=== PATIENT | female | born 1970 | race Caucasian/White ===

== ENCOUNTER → 2018-08-30 | Outpatient (CLI) | payer BC ==
--- NOTE | 2018-09-03 10:35 | Diagnostic Imaging Report ---
EXAMINATION: MRI of the left brachial plexus without contrast CLINICAL HISTORY: Left upper extremity pain, left axillary region swelling, thoracic outlet syndrome. COMPARISON: None available TECHNIQUE: Sagittal and coronal T1, coronal T2 STIR, coronal water IDEAL, axial T1 and T2 FSE, axial T2 acute, postcontrast axial and coronal T1 fat sat. Additional coronal T2 fat sat of the bilateral cervicothoracic regions were performed. Image quality: Motion artifact from pulsation limits evaluation of some of the sequences. FINDINGS: The upper, middle and lower trunks as well as the lateral, posterior and medial cords are normal in size and signal intensity. There is no evidence of intrinsic lesion or abnormal enhancement. No extrinsic compression is seen either. The spinal cord is of normal size and contains no areas of abnormal signal intensity. No significant degenerative changes. IMPRESSION: No evidence of intrinsic abnormality or extrinsic compression of the left brachial plexus. Signed by: Dr. Rhea Rothman M.D. on 09/03/2018 10:32 AM
== END ==
LOC: MRI 10:23
PROVIDERS: ATTEND Internal Medicine Interventional Cardiology
DX: G54.0 Brachial plexus disorders (principal); M79.602 Pain in left arm
CPT/HCPCS: 71550

== ENCOUNTER → 2018-10-08 | Outpatient (CLI) | payer BC ==
[~2018-10-08] MED LIST: IOPAMIDOL 370 MG/ML 200 ML INFUS..BTL INJ ONE; SODIUM CHLORIDE 0.9% 50ML 50 ML ONE
--- NOTE | 2018-10-08 14:10 | Diagnostic Imaging Report ---
Exam: Left humerusCT with contrast. History: Lung/mass in the left upper arm outer part of the mid humerus and arm pit.. History of basal cell skin cancer. Bone pain Comparison:MRI 08/30/2018 Technique: Utilizing a 64-slice multidetector CT, axial imaging was performed through the left humerus with IV contrast. 100 cc Isovue 370 contrast material was administered Multiplanar reformation was performed. RADIATION DOSE: Total DLP: 526.54 mGy*cm Estimated effective dose: (DLP x 0.015 x size factor) mSv All CT scans are performed using radiation dose reduction techniques. Technical factors are evaluated and adjusted to ensure appropriate moderation of exposure. Automated dose management technology is applied to adjust the radiation dose to minimize exposure while achieving a diagnostic-quality image. Findings: There is lobulation of the superficial fat in the left axillary region/armpit and in the adjacent left upper arm. There is a nonspecific 4 mm superficial calcification best seen on axial image 101 immediately deep to the skin surface could be due to a small granuloma. No abnormal enhancing masses are seen. There is no acute fracture, subluxation or avascular necrosis. Scattered degenerative changes are seen. The visualized muscles are normal in size, and morphology. The visualized neurovascular bundles are intact. No lymphadenopathy is seen. Impression: Lobulation of the superficial fat in the left axillary region/armpit and in the adjacent left upper arm. There is a nonspecific 4 mm superficial calcification immediately deep to the skin surface could be due to a small granuloma. No abnormal enhancing masses are seen. Signed by: Dr. Anthony Madrigal M.D. on 10/08/2018 2:07 PM
== END ==
LOC: CT 11:48
PROVIDERS: ATTEND Family Medicine
DX: R22.9 Localized swelling, mass and lump, unspecified (principal)
CPT/HCPCS: 73201; Q9967